=== PATIENT | male | born 1970 | race Caucasian/White ===

== ENCOUNTER 2019-01-31 17:58 | Emergency (ER) | payer OTHER, SELFPAY ==
[2019-01-31] VITALS (19 sets, daily range): BP systolic 138–165; BP diastolic 85–118; PULSE 78–94; RESP 10–24; TEMP 37.9; O2SAT 94–99
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
[2019-01-31 18:33] LABS: Abs Immature Grans 0.01 k/cumm (0.0-0.09); Absolute Basophil Count 0.03 k/cumm (0.0-0.2); Absolute Eosinophil Count 0.06 k/cumm (0.0-0.7); Absolute Lymphocyte Count 1.08 k/cumm (1.2-3.4); Absolute Monocyte Count 0.65 k/cumm (0.11-0.7); Basophils % 0.3; Eosinophils % 0.6; HCT 43.7 % (40.0-50.0); Immature Grans % 0.1; Lymphocytes % 11.3; Mean Corp. HGB Concentration 34.3 g/dL (32.0-36.0); Mean Corpuscular Hemoglobin 31.1 pg (27.0-33.0); Mean Corpuscular Volume 90.5 fL (80-95); Mean Platelet Volume 9.4 fL (8.0-11.0); Monocytes % 6.8; Neutrophils % 80.9; Platelet Count 246 x1000/uL (130-400); RBC 4.83 m/cumm (4.50-6.00); RBC Distribution Width 12.3 % (11.8-14.1); White Blood Cell Count 9.53 k/cumm (4.4-10.8)
[2019-01-31] MEDS: Normal Saline Flush 10 ML SYR IVP (18:38)
[2019-01-31] MEDS: Omnipaque 350 MG/ML 100 ML BTL IJ (18:38)
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
[2019-01-31 18:50] LABS: ALT 46 U/L (12-78); AST 33 U/L (15-37); Albumin 4.5 g/dL (3.4-5.0); Alkaline Phosphatase 42 U/L (46-116); Anion Gap 10.6 mmol/L (3-11); BUN 27 mg/dL (7-18); Bilirubin, Total 0.4 mg/dL (0.2-1.0); CO2 27.4 mmol/L (21.0-32.0); CREATININE 1.65 mg/dL (0.70-1.30); Calcium 9.4 mg/dL (8.5-10.1); Chloride 104 mmol/L (98-107); Estimated GFR 45.14 (mL/min/1.73m2); Glucose 128 mg/dL (70-100); Potassium 4.4 mmol/L (3.5-5.1); Sodium 142 mmol/L (136-145); Total Protein 7.8 g/dL (6.4-8.2)
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
--- NOTE | 2019-01-31 19:24 | DI.VRAD_ITS ---
EXAM: CT Chest With Contrast EXAM DATE/TIME: 01/31/2019 6:39 PM CLINICAL HISTORY: 48 years old, male; Chest wall pain; Patient HX: R rib pain, R shoulder pain TECHNIQUE: Imaging protocol: Axial computed tomography images of the chest with intravenous contrast. Coronal and sagittal reformatted images were created and reviewed. COMPARISON: No relevant prior studies available. FINDINGS: Lungs: There is no significant interstitial or airspace disease appreciated. Pleural space: There is a small anterior right pneumothorax (10%). Heart: Normal in size and configuration. No pericardial effusion. Mediastinum: There are tiny foci of air in the right pericardial fat pad which could be related to the same pneumothorax versus a tiny amount of pneumomediastinum. Pulmonary arteries: Normal in course and caliber. Aorta: Normal in course and caliber. No acute pathology. Lymph nodes: No adenopathy. Bones/joints: There is a comminuted right scapular fracture which involves the body of the scapula predominantly. No other acutely displaced fracture or dislocation is appreciated. Soft tissues: Unremarkable. IMPRESSION: 1. Small right pneumothorax (10%). 2. Comminuted right scapular body fracture. THIS REPORT CONTAINS FINDINGS THAT MAY BE CRITICAL TO PATIENT CARE. The findings were verbally communicated via telephone conference with IVY MUELLER at 7:23 PM EDT on 01/31/2019. The findings were acknowledged and understood. EXAM: CT Abdomen and Pelvis With Contrast EXAM DATE/TIME: 01/31/2019 6:39 PM CLINICAL HISTORY: 48 years old, male; Chest wall pain; Patient HX: R rib pain, R shoulder pain TECHNIQUE: Imaging protocol: Axial computed tomography images of the abdomen and pelvis with intravenous contrast. Coronal and sagittal reformatted images were created and reviewed. COMPARISON: No relevant prior studies available. FINDINGS: Liver: Normal. No mass. Gallbladder and bile ducts: Normal. No calcified stones. No ductal dilation. Pancreas: Normal. No ductal dilation. Spleen: Normal. No splenomegaly. Adrenals: Normal. No mass. Kidneys and ureters: Normal. No hydronephrosis. Stomach and bowel: No bowel wall thickening, obstruction, or other acute pathology. Diffuse colonic diverticulosis is present. There is moderately excessive colonic stool content. Appendix: No evidence of appendicitis. Intraperitoneal space: Normal. No free air. No significant fluid collection. Vasculature: The vasculature demonstrates diffuse mild atherosclerotic calcification. Lymph nodes: Normal. No enlarged lymph nodes. Bladder: Urinary bladder diverticula are present, the largest on the left measuring up to 3.6 cm in greatest diameter. Urinary bladder is otherwise unremarkable. Reproductive: Unremarkable as visualized. Bones/joints: No acute skeletal pathology. Mild multilevel degenerative changes of the spine, as manifested by multilevel anterior osteophytes and multilevel decrease in intervertebral disc space. Soft tissues: Unremarkable. IMPRESSION: 1. Negative for acute abdominopelvic pathology. 2. Incidental findings as detailed above. Dictated and Authenticated by: Yonathan Modi MD. Ordering:RADHA Littlejohn MD
[2019-01-31] MEDS: HYDROmorphone 2 MG/ML VIAL 1 MG IVP (19:40)
[2019-01-31] MEDS: Lactated Ringers 1,000 ML 150 ML IV (19:40)
--- NOTE | 2019-01-31 19:49 | DI.CT_ITS ---
SYMPTOM/DIAGNOSIS: RECON, REQUESTED BY [facility] [place] LUMBAR SPINE AND THORACIC SPINE RECONSTRUCTION CT: 01/31 CT reconstructions were obtained from chest, abdomen and pelvis raw data for evaluation of the thoracic and lumbar spine. No evidence of thoracic or lumbar spine fracture or dislocation.
== END 2019-01-31 20:10 | disposition short-term general hospital (02) ==
PROVIDERS: Emergency Provider Student in an Organized Health Care Education/Training Program; PCP Internal Medicine
DX: J93.9 Pneumothorax, unspecified (principal); S42.111A Displaced fracture of body of scapula, right shoulder, initial encounter for closed fracture; V17.0XXA Pedal cycle driver injured in collision with fixed or stationary object in nontraffic accident, initial encounter
CPT/HCPCS: 36415; 74177; 80053; 86850; 86900; 86901; 96374; 99285; 70450; 71260; 72125; 73030; 85025; 99284; J3490